=== PATIENT | male | born 1935 | race Caucasian/White ===

== ENCOUNTER 2016-07-13 11:58 | Inpatient (IN) | payer MEDICARE, BC ==
[~2016-07-13] VITALS: Ht 180.3 cm; Wt 98.1 kg
--- NOTE | ~2016-07-13 | ECH ---
Transthoracic Echocardiography Report (TTE) Demographics Patient Name BHAVANA EVANS Date of Study 07/14/2016 Patient Number [id number] Visit Number [id number] Date of 1935 Room Number 412 Accession Number [id number] Gender Male Age 80 year(s) Referring King Pawel Martin MD Net Application Support Specialist Maura Morrow Physician Abner Liang RDCS, MD Physician Interpreting Anthony CAMACHO Observatory Director Physician Brady Supervising Ordering Physician King Pawel Martin MD, MD/MLP Nurse Stress Class C Driver Conclusions Contractility Score Summary Normal Left Ventricular contractility was noted. Summary Technically adequate exam. The estimated left ventricular ejection fraction is 60%. The right atrium is moderately dilated. Recommendation The patient will be given the results of this study by the physician who ordered the exam. Procedure Type of Study TTE procedure:Echo Complete SF. Procedure Date Date: 07/14/2016 Start: 01:58 PM Technical Quality: Adequate visualization Indications:Atrial Flutter, paroxysmal a-fib, Hypertension, Coronary artery disease and History of CABG. Additional Indications:History of stents Appropriate Use Criteria: 9 Height: 71 inches Weight: 216 pounds BSA: 2.18 m Rhythm: Within normal limits HR: 76 bpm BP: 111/70 mmHg M-Mode/2D Measurements LV Diastolic Dimension: 4.89 cm LV Systolic Dimension: 3.25 cm LV Septum Diastolic: 1 cm LV PW Diastolic: 0.98 cm AO Root Dimension: 3.1 cm Cardiac Output: 4.25 l/min LA Dimension: 3.53 cm Cardiac Index: 1.95 l/min*m RV Diastolic Dimension: 3.03 cm LA volume index: 21 ml/m LVOT: 1.97 cm LVOT VTI: 18.36 cm RV Base: 4.5 cm LV Stroke volume: 55.93 ml RV Mid: 2.4 cm LV Stroke volume index: 25.66 ml/m TAPSE: 1.9 cm TDI-S': 14 cm/s Doppler Measurements AV Peak Velocity: 1.1 m/s MV Peak E-Wave: 0.53 m/s AV Peak Gradient: 4.84 mmHg MV Peak A-Wave: 0.41 m/s AV Mean Gradient: 2.87 mmHg MV E/A Ratio: 1.29 LVOT Peak Velocity: 1.1 m/s MV P1/2t: 58.5 msec AV Area (Continuity):3.14 cm MV Deceleration Time: 215.5 msec TR Velocity:2.47 m/s MV Area (PHT): 3.76 cm TR Gradient:24.4 mmHg PV Peak Velocity: 0.8 m/s Estimated RAP:3 mmHg PV Peak Gradient: 2.54 mmHg Estimated RVSP: 27 mmHg Estimated PASP: 27.4 mmHg E' Septal Velocity: 0.09 m/s A' Septal Velocity: 0.08 m/s E' Lateral Velocity: 0.1 m/s A' Lateral Velocity: 0.07 m/s RA Area: 26.9 cm Findings Left Ventricle Normal left ventricle size and function. Diastolic assessment reveals normal relaxation. Right Ventricle Normal right ventricle structure and function. Left Atrium Normal left atrial size. Right Atrium The right atrium is moderately dilated. Mitral Valve Normal mitral valve structure and function. Trivial mitral regurgitation by color Doppler. Aortic Valve The aortic valve is mildly sclerotic. Tricuspid Valve Normal tricuspid valve structure and function. Trivial tricuspid regurgitation by color Doppler. Normal pulmonary pressures. Pulmonic Valve The pulmonic valve is not well visualized. Pericardial Effusion No evidence of pericardial effusion. Miscellaneous Visualized portions of the aortic root and ascending aorta appear normal in size. Pleural Effusion No evidence of pleural effusion. Contractility Score LV regional wall motion:(0-Non visualized 1-Normal 2-Hypokinesis 3-Akinesis 4-Dyskinesis 5-Aneurysm) Signature
--- NOTE | 2016-07-13 17:49 | ER ---
ADMIT: 07/13/2016 RM/LOC: 412 [facility] MR#: [id number] [address] [address] BHAVANA EVANS [address] [place] [address] Emergency Room Report SEX: M AGE: 80 : 1935 DATE: 07/13/2016 TIME: 1158 hours. Please refer to my T-sheet for complete H and P. Briefly, the patient is an 80-year-old who comes in with chest discomfort. It kind of came on all of a sudden yesterday, kind of went away. Maybe he woke up with this. Just feels ill, tired, not wanting to go out on chest pressure, feels short of breath, and just weak. PHYSICAL EXAMINATION: VITAL SIGNS: Blood pressure is 149/99, pulse 123, respirations 12, temp 97.6, and saturating 98%. GENERAL: No acute distress. HEENT: Grossly normal. LUNGS: Clear. HEART: Irregular regular, tachycardic. ABDOMEN: Soft. SKIN: No rash. EMERGENCY DEPARTMENT COURSE: EKG revealed atrial flutter rate 106 and we caught it although would jump up to 140. CBC was normal except white count 11.3. Chemistries normal except glucose 124. CK is 435, CK-MB 6.1. Troponin was negative. Chest x-ray, no acute disease. We gave him aspirin, Maalox, started Cardizem 20 IV push, then a drip at 5 an hour. I talked to Dr. Knox was on for Dr. Levine. Also talked to [facility], will admit to the hospital. ASSESSMENT: 1. Chest pain. 2. Atrial flutter with RVR. 3. Cardizem drip. 4. Critical care time of 60 minutes. PLAN: Admit to the hospital. Dean Cartagena MD/ dennys JOB #: [id number] CC: Yael Levine MD, Attending Physician Yael Levine MD, Family Physician
[2016-07-15] MEDS ORDERED: PROAIR RESPICL90 MCG IH (14:50)
[2016-07-15] MEDS ORDERED: NORVASC5 MG PO (14:50)
[2016-07-15] MEDS ORDERED: WELCHOL625 MG PO ×2 (14:51)
[2016-07-15] MEDS ORDERED: NEURONTIN DPS300 MG PO (14:52)
[2016-07-15] MEDS ORDERED: BETAPACE DPS80 MG PO (14:52)
[2016-07-15] MEDS ORDERED: XARELTO20 MG PO (14:52)
[2016-07-15] MEDS ORDERED: PRAVACHOL20 MG PO (14:52)
[2016-07-15] MEDS ORDERED: ULTRAM DPS50 MG PO (14:52)
[2016-07-15] MEDS ORDERED: ADVAIR DIS1 PUFF/DO1 IH (14:53)
--- NOTE | 2016-07-15 17:36 | HP ---
ADMIT: 07/13/2016 RM/LOC: 412 [facility] MR#: [id number] [address] [address] BHAVANA EVANS [address] [place] [address] History and Physical SEX: M AGE: 80 : 1935 DATE OF SERVICE: CHIEF COMPLAINT: Shortness of breath. HISTORY OF PRESENT ILLNESS: The patient is a fantastic 80-year-old gentleman, who normally sees Dr. Levine in clinic. He is very avidly farming and ranching still. He had been in his usual state of health up until last couple weeks. Some kind of increased fatigue. Still able to throw a tin metal around a couple of days ago. However, today and last night started feeling much more short of breath and is just not feeling right. Some right-sided shoulder pain radiating from his chest today. Presented to the emergency room because of this. No cough. No fevers. No chills. He has been eating and drinking well lately. Has been taking his medication as directed and has not missed a single dose, he states. This is not the same case with the inhaler, so he is going to miss some doses of that. No new sputum production or anything. PAST MEDICAL HISTORY: 1. A flutter. 2. Coronary artery disease, bypass many years ago. 3. COPD. FAMILY HISTORY: Mother of multiple strokes SOCIAL HISTORY: Lives at home alone. Daughter at bedside. Nonsmoker. REVIEW OF SYSTEMS: As per HPI. Otherwise, fully reviewed and negative. MEDICATIONS: 1. He is on Advair. 2. Ventolin. 3. Amlodipine. 4. Welchol. 5. Gabapentin. 6. Pravastatin. 7. Xarelto. 8. Sotalol. 9. Tramadol. Please see list for full details. PHYSICAL EXAMINATION: VITAL SIGNS: Temperature 98.8, pulse 122, respiratory rate 18, blood pressure 150/71, and O2 saturation 95% on room air. GENERAL: He is alert and oriented x3. No acute distress. Pleasant. Resting comfortably in bed. HEENT: Normocephalic, atraumatic. Pupils equal, round, and reactive to light and accommodation. Extraocular muscles intact. Moist mucous membranes. NECK: No lymphadenopathy. Soft, supple. Trachea midline. LUNGS: Clear to auscultation bilaterally. No wheezes, rales, or rhonchi. HEART: Irregularly irregular, tachycardic. No murmurs or rubs. Distant sounding. PMI at 5th intercostal space. ADMIT: 07/13/2016 RM/LOC: 412 [facility] MR#: [id number] [address] [address] [place] [address] History and Physical SEX: M AGE: 80 : 1935 ABDOMEN: Soft, nontender, nondistended. Bowel sounds present. EXTREMITIES: No cyanosis, clubbing, or edema. MUSCULOSKELETAL: 5/5 strength in all 4 extremities. NEUROLOGICAL: No focal deficits noted. Cranial nerves II through XII grossly intact. LABORATORY AND X-RAY DATA: Troponin is negative. White count 11.3, creatinine is 1.3, glucose 124, mag 2.2, potassium is 4.4, normal. His CK is 435, his CK-MB is 6.1. ASSESSMENT/PLAN: 1. Atrial flutter with RVR. 2. Coronary artery disease. 3. Chronic obstructive pulmonary disease. PLAN: At this point in time, he has been seen by Cardiology already. Plan is for DC cardioversion in the morning if not better and spontaneously cardioverted overnight. We will maintain him on a Cardizem drip. Heart rate has come down now into the 120s and he feels better. Continue his sotalol. Continue anticoagulation. The patient is agreeable to plan. Nura Knox MD/ dennys JOB #: [id number] CC: Yael Levine, Attending Physician Yael Levine, Family Physician
--- NOTE | 2016-07-18 14:23 | CO ---
ADMIT: 07/13/2016 RM/LOC: 412 [facility] MR#: [id number] [address] [address] HBAVANA EVANS [address] [place] [address] Consultation SEX: M AGE: 80 : 1935 DATE OF CONSULTATION: 07/13/2016 ATTENDING PHYSICIAN: Yael Levine CONSULTING PHYSICIAN: Denis Cardenas MD REASON FOR CONSULT: Atrial arrhythmias and chest pain. HISTORY OF PRESENT ILLNESS: Bhavana is a very nice 80-year-old gentleman with a known history of coronary artery disease with a stent to his first ostial, first diagonal in May 2002 followed by two vessel bypass with a RUSH to the first diagonal and LAD in October of 2002. His last heart catheterization showed nonobstructive mid LAD disease and a patent graft to the diagonal, but the sequential portion to the LAD was atretic. He has been medically managed and done well since. Apparently, he just had a stress test last November, which was unremarkable per his report. He also has a history of atrial fibrillation dating back many years. He underwent a cardioversion back in 2005 and he has been on low-dose sotalol at 40 mg along with anticoagulation. I was asked to see him at the request of Dr. Levine after he has been experiencing more fatigue over the past couple of days. He has not had any palpitations. 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 Since Monday, he had been having more fatigue and just lack of motivation, which is very unusual for him. He did not say was overly short of breath. He was not having any chest discomfort. He was struggling with some right shoulder pain, which would worsen with movement and inspiration. This morning, he said he just in feel like getting up and going to work, which is very unusual. He decided to drive to [employer] and check his blood pressure, but they did not have a blood pressure cuff. He went over to use it, but they did not have a blood pressure cuff, so he decided to drive to Dr. Levine's office. After talking to the nurse, he was sent to the emergency room. Once again, he is not having chest pain, just right shoulder pain but when he came to the ER, he was found to be in atrial flutter with rapid ventricular response. His initial cardiac enzymes are negative. He is now on Cardizem. He has been very compliant with his Xarelto. PAST MEDICAL HISTORY: There are no known medical allergies. MEDICATIONS: 1. Ventolin inhaler. 2. WelChol 625 every morning. 3. Amlodipine 5 daily. 4. Gabapentin 600 twice a day. 5. Pravastatin 20 daily. 6. Xarelto 20 daily. 7. Sotalol 40 mg b.i.d. 8. Tramadol 50 daily. ADMIT: 07/13/2016 RM/LOC: 412 [facility] MR#: [id number] [address] [place] [id number] [place] [address] Consultation SEX: M AGE: 80 : 1935 9. Advair 2 puffs twice daily as needed. ILLNESSES: Include coronary artery disease, COPD, atrial fibrillation, and questionable history of TIA. 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 He has had previous bypass surgery. FAMILY HISTORY: Negative for premature coronary artery disease. His mother of a stroke and his father at an elderly age of pneumonia. He has two healthy brothers, one just celebrated birthday. SOCIAL HISTORY: He has been in the [employer] business for years. He is . He has two children. He has never smoked. He rarely uses alcohol. REVIEW OF SYSTEMS: As per the HPI. Otherwise, reviewed and noncontributory. PHYSICAL EXAMINATION: VITAL SIGNS: His blood pressure is 150/71, his heart rate is 120, and respirations 18. He is afebrile. O2 sats are 95% on room air. GENERAL: He is alert and oriented. He is in good humor. Pleasant and cooperative. No acute distress. SKIN: [place], warm and dry. EYES: Sclerae clear. No xanthelasmas. ENT: Oral mucosa is pink and moist. No jugular venous distention or carotid bruits. CHEST: Respirations are even and unlabored. Lungs are clear to auscultation. HEART: Mildly tachycardic. Regular. No significant murmurs, rubs or gallops are noted. ABDOMEN: Soft and nontender. MUSCULOSKELETAL: Gait is normal. EXTREMITIES: Peripheral pulses palpable. No clubbing, cyanosis or edema. PSYCHIATRIC: Alert and oriented. Mood and affect are appropriate. LABORATORY AND X-RAY DATA: Potassium is 4.4 and creatinine 1.3. His CK is elevated at 435 but his MB is only 6.1, and troponin is less than 0.015. White count is 11.3, hemoglobin 15.3, and platelet count 260,000. Chest x-ray shows no significant changes other than his old postoperative state, but no significant vascular congestion. His EKG shows a probable typical atrial flutter, although it is slightly irregular. Rate was just over 100. No definitive ischemic EKG changes. IMPRESSION: 1. Atrial flutter with rapid ventricular response. 2. Paroxysmal atrial fibrillation. 3. Coronary artery disease. 4. Right shoulder pain. ADMIT: 07/13/2016 RM/LOC: 412 [facility] MR#: [id number] [facility] [address] [address] BHAVANA EVANS [address] [place] [address] Consultation SEX: M AGE: 80 : 1935 5. Hyperlipidemia. 6. Hypertension. RECOMMENDATIONS: It is difficult to tell by his symptoms, but I think the flutter is probably new over the past several days. He does not have palpitations or specific symptoms other than his decreased motivation and decreased exercise tolerance. We will continue with IV Cardizem since it has already been started. If he does not convert to sinus overnight, I think we will plan a cardioversion tomorrow. The procedure including the potential risk and benefits were discussed with the patient. Potential risks including, but not limited to, complications from anesthesia, or bradycardia. He states understanding and wishes to proceed. He has been extraordinarily compliant with his anticoagulation, so we will not need a transesophageal echo. We can decide after the cardioversion about optimizing his antiarrhythmic and the obvious first step would be to increase his sotalol to 80 b.i.d. In the future, could have him see the etl software engineer for an aflutter ablation. We will tentatively plan for cardioversion tomorrow morning. I was told that they may be having a component of chest pain. This is clearly right shoulder pain. He is not having angina. No further ischemic evaluation is needed at this point. Thank you for this consultation. Denis Cardenas MD/ dennys JOB #: [id number] CC: Yael Levine, Attending Physician Yael Levine, Family Physician
--- NOTE | 2016-07-21 09:31 | CVR ---
ADMIT: 07/13/2016 RM/LOC: 412 [facility] MR#: [id number] [address] [address] BHAVANA EVANS [address] [place] [address] Cardioversion Report SEX: M AGE: 80 : 1935 DATE: PROCEDURE: DC cardioversion. INDICATIONS: The patient is an 80-year-old male, who presented with some shortness of breath and other symptoms consistent with atrial flutter. After being admitted, it was felt that cardioversion would be appropriate today. PROCEDURE IN DETAIL: After obtaining informed consent, the patient was sedated under Anesthesia's direction. Once adequate sedation was achieved, he had 100 joule synchronized cardioversion performed which converted him to sinus rhythm. ASSESSMENT AND PLAN: The patient will continue on his anticoagulation as he has been before. We will increase his sotalol to 80 mg twice daily, do an EKG on Monday and follow up in the next several weeks. Pawel Jones MD/ dennys JOB #: [id number] CC: Yael Levine, Attending Physician Yael Levine, Family Physician Yael Levine MD
--- NOTE | 2016-08-25 11:38 | DS ---
ADMIT: 07/13/2016 RM/LOC: 412 [facility] MR#: [id number] [address] [address] BHAVANA EVANS [address] [place] [address] Discharge Summary SEX: M AGE: 80 : 1935 ADMISSION DATE: 07/13/2016 DISCHARGE DATE: 07/14/2016 DISCHARGE DIAGNOSES: 1. Shortness of breath. 2. Atrial flutter with rapid ventricular response. 3. Coronary artery disease. 4. COPD (chronic obstructive pulmonary disease). 5. History of atrial flutter. 6. Neck osteoarthritis. HOSPITAL COURSE: The patient was admitted. He was actually seen by Cardiology upon admission. They had done a cardioversion the next morning. Patient tolerated this well without any complications. He otherwise was maintained in normal sinus rhythm. The plan was for patient to be discharged home. DISCHARGE MEDICATIONS: His medications were: 1. Neurontin 600 mg p.o. b.i.d. 2. Norvasc 5 mg p.o. at bedtime. 3. Pravachol 20 mg p.o. at bedtime. 4. Xarelto 20 mg p.o. at bedtime. 5. Welchol 625 mg p.o. daily. 6. Ventolin inhaler q.i.d. p.r.n. 7. Xarelto 20 mg p.o. daily. 8. Tramadol 50 mg p.o. t.i.d. p.r.n. 9. Betapace 80 mg p.o. b.i.d. FOLLOWUP: Follow up with Dr. Yael Levine in 2 weeks. Follow up with [facility] at their discretion. Yael Levine MD/ patricia JOB #: [id number] CC: Yael Levine MD, Attending Physician Yael Levine MD, Family Physician
== END 2016-07-14 16:30 | disposition home or self-care (01) | DRG 310 ==
LOC: ER 11:58 → 4PCU 13:40
PROVIDERS: ADMIT Internal Medicine
PROC: 5A2204Z Restoration of Cardiac Rhythm, Single (ICD-10-PCS; principal; 2016-07-14)
DX: I48.92 Unspecified atrial flutter (principal); J44.9 Chronic obstructive pulmonary disease, unspecified; Z95.1 Presence of aortocoronary bypass graft; M47.9 Spondylosis, unspecified; I25.10 Atherosclerotic heart disease of native coronary artery without angina pectoris; I10 Essential (primary) hypertension; I48.0 Paroxysmal atrial fibrillation; E78.5 Hyperlipidemia, unspecified; Z95.5 Presence of coronary angioplasty implant and graft; Z79.01 Long term (current) use of anticoagulants